=== PATIENT | female | born 1955 | race Caucasian/White ===

== ENCOUNTER 2019-07-18 17:02 | Emergency (ER) | payer MEDICARE, MEDICAID ==
[2019-07-18] MEDS ORDERED: Levalbuterol 1.25MG/0.5ML NEB INH ONE (17:12)
[2019-07-18] MEDS ORDERED: Levalbuterol 0.63MG/3ML NEB* UNIT OF USE INH ONE (17:16)
[2019-07-18 17:17] VITALS: BP 155/87
--- NOTE | 2019-07-18 17:33 | UC ---
Respiratory Complaint HPI - HPI Summary HPI Summary: 64 yo with COPD, with one week of worsening symptoms. Yesterday she increased her albuterol nebs to every 4 hours. She does have a past hx of pneumonia. Uses Symbicort and aclidinium. Continues to smoke regularly. Past history of pneumonia and has needed steroids in the past for exacerbation. - History of Current Complaint Chief Complaint: UCRespiratory Stated Complaint: COUGH/CONGESTION Time Seen by Provider: 07/18/19 17:11 Hx Obtained From: Patient Onset/Duration: Gradual Onset, Lasting Days - 6-7 Timing: Constant Severity Initially: Moderate Severity Currently: Moderate Pain Intensity: 0 Character: Cough: Productive Aggravating Factors: Exertion, Deep Breaths, Recumbent Position Alleviating Factors: Bronchodilator Associated Signs And Symptoms: Positive: Dyspnea, Wheezing. Negative: Fever - Risk Factors Pulmonary Embolism Risk Factors: Smoking Cardiac Risk Factors: Hypertension, Smoking Pseudomonas Risk Factors: Negative Tuberculosis Risk Factors: Negative - Allergies/Home Medications Allergies/Adverse Reactions: Allergies Allergy/AdvReac Type Severity Reaction Status Date / Time No Known Allergies Allergy Verified 07/18/19 17:13 Home Medications: Home Medications Aclidinium [place] [Tudorza Pressair] 1 puff BID 07/18/19 [History Confirmed ] Budesonide/Formote 160/4.5(NF) [Symbicort 160/4.5 (NF)] 1 puff BID 07/18/19 [ History Confirmed 07/18/19] Hydrochlorothiazide TAB* [Hydrodiuril TAB*] 12.5 mg DAILY 07/18/19 [History Confirmed 07/18/19] Omeprazole 1 cap DAILY 07/18/19 [History Confirmed 07/18/19] Simvastatin 20 mg PO DAILY 07/18/19 [History Confirmed 07/18/19] PMH/Surg Hx/FS Hx/Imm Hx Cardiovascular History: Hypertension Respiratory History: COPD - Surgical History Surgical History: Yes Surgery Procedure, Year, and Place: Tubal. Tonsils - Social History Alcohol Use: None Substance Use Type: None Smoking Status (MU): Light Every Day Tobacco Smoker Type: Cigarettes Amount Used/How Often: 5 cigs/day Length of Time of Smoking/Using Tobacco: since 16 y/o Review of Systems All Other Systems Reviewed And Are Negative: Yes Constitutional: Positive: Fatigue Skin: Positive: Negative Eyes: Positive: Negative ENT: Positive: Negative Respiratory: Positive: Shortness Of Breath, Cough Cardiovascular: Negative: Palpitations, Chest Pain Gastrointestinal: Positive: Negative Motor: Positive: Negative Neurovascular: Positive: Negative Musculoskeletal: Positive: Negative Neurological: Positive: Negative Psychological: Positive: Negative Is Patient Immunocompromised?: No Physical Exam Triage Information Reviewed: Yes Appearance: Ill-Appearing, Thin, Other: - Respiratory distress: tachypneic with indrawing, sternomastoid use. Difficulty speaking a full sentence. Vital Signs: Initial Vital Signs Temp 98.9 F 07/18/19 17:09 Pulse 125 07/18/19 17:09 Resp 28 07/18/19 17:09 BP 155/87 07/18/19 17:09 Pulse Ox 97 07/18/19 17:09 ENT: Positive: Pharynx normal, TMs normal Neck: Positive: Supple, Nontender, No Lymphadenopathy Respiratory Exam: Other - Difficulty speaking, severely prolonged expiration. Respiratory: Positive: Respiratory distress, Decreased breath sounds, Accessory muscle use, Wheezing, Expiration, Inspiration Cardiovascular: Positive: No Murmur, Tachycardia Musculoskeletal Exam: Normal Neurological: Positive: Alert, Muscle Tone Normal Psychological Exam: Normal Skin Exam: Normal Re-Evaluation - Re-Evaluation First Eval Re-Evaluation Time: 17:55 Change: Unchanged Comment: No decrease in breathing rate or improvement in air entry. Given number of nebs she has had today, decision made to transfer to the ER immediately. Respiratory Course/Dx - Course Course Of Treatment: xopenex given with minimal relief of tachypnea and no significant improvement in air entry. Her daughter is here and will transfer by private car. - Differential Dx/Diagnosis Provider Diagnosis: COPD exacerbation - Physician Notification/Consults Discussed Patient Care With: Dr. Braulio Reid Time Discussed With Above Provider: 18:00 Instructed by Provider To: Transfer Discharge ED - Sign-Out/Discharge Documenting (check all that apply): Patient Departure All imaging exams completed and their final reports reviewed: No Studies - Discharge Plan Condition: Stable Disposition: TRANS [facility] Patient Education Materials: COPD (Chronic Obstructive Pulmonary Disease) (ED) Referrals: Adilene Vidales MD [Primary Care Provider] - Additional Instructions: Please go directly to the emergency room for assessment due to the continued high breathing rate and lack of response to bronchodilators. - Billing Disposition and Condition Condition: STABLE Disposition: Trans [facility] Care Fac
== END 2019-07-18 18:13 | disposition short-term general hospital (02) ==
LOC: UCCORT 17:02
DX: J44.1 Chronic obstructive pulmonary disease with (acute) exacerbation (principal); I10 Essential (primary) hypertension; F17.210 Nicotine dependence, cigarettes, uncomplicated; Z79.899 Other long term (current) drug therapy
CPT/HCPCS: 99212; A9270-GY; G0463